=== PATIENT | male | born 1960 | race Caucasian/White ===

== ENCOUNTER 2021-05-06 02:33 | Observation (INO) | payer MEDICARE, SELFPAY ==
[~2021-05-06] VITALS: Ht 195.6 cm; Wt 120.5 kg
[2021-05-06] MEDS ORDERED: NS 1,000 ML IV ONE ×2 (03:00→03:25)
[2021-05-06 03:11] LABS: BASO % 0.1 % (0.0-1.0); EOS # 0.1 10^3/uL (0.0-0.5); EOS % 0.8 % (0.0-3.0); HEMATOCRIT 39.4 % (42.0-52.0); LYMPH % 42.2 % (24.0-44.0); MONO # 0.6 10^3/uL (0.0-0.8); MONO % 7.9 % (2.0-8.0); NEUTROPHILS # 3.5 10^3/uL (1.5-8.5); NEUTROPHILS % 48.9 % (36.0-66.0); PLATELET COUNT, AUTOMATED 234 10^3/uL (150-450); RED BLOOD COUNT 4.19 10^6/uL (4.30-6.10); WHITE BLOOD COUNT 7.1 10^3/uL (4.0-10.0)
[2021-05-06] MEDS ORDERED: CHARCOAL ACTIVATED LIQUID 25 GM/120 ML BTL PO ONE (03:25)
[2021-05-06 03:59] LABS: AMPHETAMINES LEVEL URINE NEGATIVE (NEGATIVE); BARBITURATES URINE NEGATIVE (NEGATIVE); BENZODIAZEPINES URINE NEGATIVE (NEGATIVE); CANNABINOIDS URINE POSITIVE (NEGATIVE); COCAINE METABOLITE URINE NEGATIVE (NEGATIVE); METHADONE URINE NEGATIVE (NEGATIVE); OPIATES URINE POSITIVE (NEGATIVE); PHENCYCLIDINE URINE NEGATIVE (NEGATIVE)
[2021-05-06 04:00] LABS: ACETAMINOPHEN LEVEL < 2.0 UG/ML (10.0-30.0); ALBUMIN 3.8 GM/DL (3.2-5.2); ALT/SGPT 31 U/L (12-78); BILIRUBIN,DIRECT 0.1 MG/DL (0.0-0.2); BILIRUBIN,TOTAL 0.6 MG/DL (0.2-1.0); BLOOD UREA NITROGEN 17 MG/DL (7-18); CALCIUM LEVEL 9.4 MG/DL (8.8-10.2); CARBON DIOXIDE LEVEL 27 MEQ/L (21-32); CHLORIDE LEVEL 108 MEQ/L (98-107); CREATININE FOR GFR 1.24 MG/DL (0.70-1.30); ETHYL ALCOHOL (ETHANOL) < 0.003 % (0.000-0.010); GLOMERULAR FILTRATION RATE > 60.0 (>49); GLUCOSE, FASTING 137 MG/DL (70-100); MAGNESIUM LEVEL 2.3 MG/DL (1.8-2.4); POTASSIUM SERUM 4.3 MEQ/L (3.5-5.1); SALICYLATE LEVEL < 1.7 MG/DL (5.0-30.0); SODIUM LEVEL 141 MEQ/L (136-145); TOTAL PROTEIN 7.1 GM/DL (6.4-8.2)
[2021-05-06 04:05] LABS: RSV AMPLIFICATION NEGATIVE (NEGATIVE)
[2021-05-06] MEDS ORDERED: MAG SULF 1GM/100ML (MAG RUN) 1 GM in IV 1 EA IV ONE ×2 (04:15→05:00)
[2021-05-06] MEDS ORDERED: NS 1,000 ML IV SCH (04:55)
[2021-05-06] MEDS ORDERED: GABA-282 PO (05:40)
[2021-05-06] MEDS ORDERED: VITMTA PO (05:40)
[2021-05-06] MEDS ORDERED: VENL150C43 PO (05:40)
[2021-05-06] MEDS ORDERED: ALLE24TA7 PO (05:40)
[2021-05-06] MEDS ORDERED: FURO40TA2 PO ×2 (05:40→06:00)
[2021-05-06] MEDS ORDERED: VALT1TAB PO (05:40)
[2021-05-06] MEDS ORDERED: AFRI0.058 (05:40)
[2021-05-06] MEDS ORDERED: BISA5TAB15 PO (05:40)
[2021-05-06] MEDS ORDERED: QUET100T2 PO (05:40)
[2021-05-06] MEDS ORDERED: ONDA4TAB6 PO (05:40)
[2021-05-06] MEDS ORDERED: BACITAB PO (05:40)
[2021-05-06] MEDS ORDERED: MELA10TA6 PO (05:40)
[2021-05-06] MEDS ORDERED: LIDO5OIN19 EXT (05:40)
[2021-05-06] MEDS ORDERED: IBUP-1730 PO (06:00)
[2021-05-06] MEDS ORDERED: CYAN1000VL IM (06:00)
[2021-05-06] MEDS ORDERED: CETI10CH PO (06:00)
[2021-05-06] MEDS ORDERED: TYLENOL PO (06:00)
[2021-05-06] MEDS ORDERED: METH-1164 PO (06:00)
[2021-05-06] MEDS ORDERED: B-12100010 PO (09:57)
[2021-05-06] MEDS ORDERED: PATIENT COMMENT (09:58)
[2021-05-06] MEDS ORDERED: HOME MED LIST COMPLETE! XX SCH (10:00)
[2021-05-06] MEDS ORDERED: BISACODYL 5 MG TAB PO PRN (14:45)
[2021-05-06 15:43] VITALS: BP 93/71
[2021-05-06 20:00] VITALS: BP 98/67
[2021-05-06] MEDS: GABAPENTIN 300 MG CAP PO SCH (20:35)
[2021-05-06] MEDS ORDERED: PINK BISMUTH SUSP 524MG/30ML ORAL SYRINGE PO ONE (23:35)
[2021-05-07 00:05] VITALS: BP 108/72
[2021-05-07 03:50] VITALS: BP 117/74
[2021-05-07 05:00] LABS: BLOOD UREA NITROGEN 16 MG/DL (7-18); CALCIUM LEVEL 8.6 MG/DL (8.8-10.2); CARBON DIOXIDE LEVEL 26 MEQ/L (21-32); CHLORIDE LEVEL 113 MEQ/L (98-107); CREATININE FOR GFR 1.13 MG/DL (0.70-1.30); GLOMERULAR FILTRATION RATE > 60.0 (>49); GLUCOSE, FASTING 108 MG/DL (70-100); MAGNESIUM LEVEL 2.3 MG/DL (1.8-2.4); POTASSIUM SERUM 4.1 MEQ/L (3.5-5.1); SODIUM LEVEL 143 MEQ/L (136-145)
[2021-05-07] MEDS ORDERED: IBUPROFEN 200MG TAB PO PRN (07:30)
[2021-05-07] MEDS ORDERED: methocarbamoL 500 MG TAB PO PRN (07:30)
[2021-05-07 08:00] VITALS: BP 126/84
[2021-05-07] MEDS: GABAPENTIN 300 MG CAP PO SCH (08:22)
[2021-05-07] MEDS: FUROSEMIDE 40 MG TAB PO SCH ×2 (08:23→08:27)
[2021-05-07] MEDS: valACYclovir HCL 500 MG TAB PO SCH ×2 (08:23→08:27)
[2021-05-07] MEDS ORDERED: QUEtiapine FUMARATE 200 MG TAB PO SCH ×2 (09:00)
[2021-05-07] MEDS ORDERED: CYANOCOBALAMIN 500 MCG TAB PO SCH (09:00)
[2021-05-07] MEDS ORDERED: VENLAFAXINE **XR** 75MG CAPSULE PO SCH (09:00)
[2021-05-07] MEDS ORDERED: OXYMETAZOLINE 0.05% NASAL SPRAY (AFRIN) PRN (10:30)
[2021-05-07] MEDS ORDERED: PINK BISMUTH SUSP 524MG/30ML ORAL SYRINGE PO PRN (10:35)
[2021-05-07] MEDS ORDERED: QUET100T2 PO (13:26)
[2021-05-07] MEDS ORDERED: CETIRIZINE (ZyrTEC) 10 MG TAB PO SCH (21:00)
== END 2021-05-07 15:40 ==
LOC: M ED 02:33 → M ED INP 02:34 → ENRESERV 14:25 → M PCU 15:20
PROVIDERS: ADMIT Internal Medicine; ATTEND Internal Medicine
DX: T43.8X2A Poisoning by other psychotropic drugs, intentional self-harm, initial encounter (principal); R94.31 Abnormal electrocardiogram [ECG] [EKG]; R00.1 Bradycardia, unspecified; G92.8 Other toxic encephalopathy; F41.1 Generalized anxiety disorder; F32.A Depression, unspecified; F43.0 Acute stress reaction; G60.9 Hereditary and idiopathic neuropathy, unspecified; M54.9 Dorsalgia, unspecified; Z96.82 Presence of neurostimulator; I95.1 Orthostatic hypotension; Z79.899 Other long term (current) drug therapy

== ENCOUNTER 2021-05-07 14:14 | Inpatient (IN) | payer MEDICARE ==
[~2021-05-07] VITALS: Ht 195.6 cm; Wt 120.2 kg
[~2021-05-07 14:14] MED LIST: AFRI0.058; ALLE24TA7 PO; B-12100010 PO; BACITAB PO; BISA5TAB15 PO; CETI10CH PO; CYAN1000VL IM; FURO40TA2 PO; GABA-282 PO; IBUP-1730 PO; LIDO5OIN19 EXT; MELA10TA6 PO; METH-1164 PO; ONDA4TAB6 PO; PATIENT COMMENT; QUET100T2 PO; TYLENOL PO; VALT1TAB PO; VENL150C43 PO; VITMTA PO
[2021-05-07] MEDS ORDERED: MOM 30ML SUSPENSION UDC PO PRN (14:35)
[2021-05-07] MEDS ORDERED: ACETAMINOPHEN TAB 650MG DOSE (2X325MG) PO PRN (14:35)
[2021-05-07] MEDS ORDERED: PINK BISMUTH SUSP 524MG/30ML ORAL SYRINGE PO PRN (14:45)
[2021-05-07] MEDS ORDERED: IBUPROFEN 200MG TAB PO PRN (14:45)
[2021-05-07] MEDS ORDERED: HOME MED LIST COMPLETE! XX SCH (16:00)
[2021-05-07 16:01] VITALS: BP 151/100
[2021-05-07] MEDS: traZODone 50 MG TAB PO PRN (20:35)
[2021-05-07] MEDS: valACYclovir HCL 500 MG TAB PO SCH (20:36)
[2021-05-07] MEDS: GABAPENTIN 300 MG CAP PO SCH (20:36)
[2021-05-07] MEDS: CETIRIZINE (ZyrTEC) 10 MG TAB PO SCH (20:36)
[2021-05-07] MEDS ORDERED: valACYclovir HCL 500 MG TAB PO SCH (21:00)
[2021-05-07] MEDS: OXYMETAZOLINE 0.05% NASAL SPRAY (AFRIN) PRN (22:40)
[2021-05-07] MEDS: methocarbamoL 500 MG TAB PO PRN (22:40)
[2021-05-08] MEDS: MAALOX 30 ML SUSP *UDC PO PRN ×2 (03:36→14:35)
[2021-05-08] MEDS: ONDANSETRON 4MG ORAL DISINTEGRATING TAB PO PRN ×4 (04:36→20:23)
[2021-05-08 07:14] VITALS: BP 148/100
[2021-05-08] MEDS: FUROSEMIDE 40 MG TAB PO SCH (08:44)
[2021-05-08] MEDS: CYANOCOBALAMIN 500 MCG TAB PO SCH (08:44)
[2021-05-08] MEDS: VENLAFAXINE **XR** 75MG CAPSULE PO SCH (08:44)
[2021-05-08] MEDS: GABAPENTIN 300 MG CAP PO SCH ×2 (08:44→21:02)
[2021-05-08] MEDS: valACYclovir HCL 500 MG TAB PO SCH ×2 (08:47→21:00)
[2021-05-08] MEDS ORDERED: QUEtiapine FUMARATE 200 MG TAB PO SCH (09:00)
[2021-05-08] MEDS: OXYMETAZOLINE 0.05% NASAL SPRAY (AFRIN) PRN ×2 (10:15→21:02)
[2021-05-08 15:22] VITALS: BP 162/105
[2021-05-08] MEDS: methocarbamoL 500 MG TAB PO PRN ×2 (16:11→22:12)
[2021-05-08 20:20] VITALS: BP 164/102
[2021-05-08] MEDS: QUEtiapine FUMARATE 200 MG TAB PO SCH (21:01)
[2021-05-08] MEDS: traZODone 50 MG TAB PO PRN (21:01)
[2021-05-08] MEDS: CETIRIZINE (ZyrTEC) 10 MG TAB PO SCH (21:02)
[2021-05-08 21:20] VITALS: BP 164/102
[2021-05-08 23:25] VITALS: BP 148/92
[2021-05-09 06:39] VITALS: BP 122/80
[2021-05-09 07:42] LABS: CHOLESTEROL RISK RATIO 2.96 (<5)
[2021-05-09] MEDS: GABAPENTIN 300 MG CAP PO SCH ×2 (08:41→20:59)
[2021-05-09] MEDS: CYANOCOBALAMIN 500 MCG TAB PO SCH (08:41)
[2021-05-09] MEDS: FUROSEMIDE 40 MG TAB PO SCH (08:41)
[2021-05-09] MEDS: VENLAFAXINE **XR** 75MG CAPSULE PO SCH (08:42)
[2021-05-09] MEDS: QUEtiapine FUMARATE 200 MG TAB PO SCH ×2 (08:42→20:59)
[2021-05-09] MEDS: methocarbamoL 500 MG TAB PO PRN ×3 (08:44→21:01)
[2021-05-09] MEDS: ONDANSETRON 4MG ORAL DISINTEGRATING TAB PO PRN ×3 (08:44→21:00)
[2021-05-09] MEDS: OXYMETAZOLINE 0.05% NASAL SPRAY (AFRIN) PRN ×2 (08:47→21:01)
[2021-05-09] MEDS: valACYclovir HCL 500 MG TAB PO SCH (09:00)
[2021-05-09] MEDS ORDERED: zolPIDEM TARTRATE 5 MG TAB PO PRN (13:20)
[2021-05-09] MEDS: MAALOX 30 ML SUSP *UDC PO PRN (15:11)
[2021-05-09 18:20] VITALS: BP 148/90
[2021-05-09] MEDS: CETIRIZINE (ZyrTEC) 10 MG TAB PO SCH (20:59)
[2021-05-10 06:14] VITALS: BP 143/86
[2021-05-10] MEDS: GABAPENTIN 300 MG CAP PO SCH (07:58)
[2021-05-10] MEDS: VENLAFAXINE **XR** 75MG CAPSULE PO SCH (07:59)
[2021-05-10] MEDS: FUROSEMIDE 40 MG TAB PO SCH (07:59)
[2021-05-10] MEDS: methocarbamoL 500 MG TAB PO PRN ×2 (07:59→12:07)
[2021-05-10] MEDS: CYANOCOBALAMIN 500 MCG TAB PO SCH (07:59)
[2021-05-10] MEDS: QUEtiapine FUMARATE 200 MG TAB PO SCH (07:59)
[2021-05-10] MEDS: ONDANSETRON 4MG ORAL DISINTEGRATING TAB PO PRN (07:59)
[2021-05-10] MEDS ORDERED: ZOLP5TAB PO (09:46)
[2021-05-10 10:12] VITALS: BP 143/86
== END 2021-05-10 15:21 | disposition home or self-care (01) | DRG 880 ==
LOC: M PSY 15:45
PROVIDERS: ADMIT Psychiatry & Neurology Psychiatry; ATTEND Psychiatry & Neurology Psychiatry
DX: F41.1 Generalized anxiety disorder (principal); R94.31 Abnormal electrocardiogram [ECG] [EKG]; R00.1 Bradycardia, unspecified; T43.8X2A Poisoning by other psychotropic drugs, intentional self-harm, initial encounter; F32.A Depression, unspecified; F43.0 Acute stress reaction; I95.1 Orthostatic hypotension; G60.9 Hereditary and idiopathic neuropathy, unspecified; M54.9 Dorsalgia, unspecified; G89.29 Other chronic pain; R19.7 Diarrhea, unspecified; R10.9 Unspecified abdominal pain; R11.0 Nausea; Z63.0 Problems in relationship with spouse or partner; Z96.82 Presence of neurostimulator; Z79.899 Other long term (current) drug therapy